=== PATIENT | male | born 1955 | race African-American/Black ===

== ENCOUNTER 2018-02-28 16:42 | Inpatient (IN) | payer MEDICARE ==
--- NOTE | 2018-02-28 16:59 | ED ---
Respiratory - HPI Summary HPI Summary: Pt is a 62 y/o male with PMHX of ESRD presenting to the [facility] c/o of respiratory distress since today. He is visiting family in [place] and is originally from [place]. Today, he missed his first of two weekly dialysis visits. He notes SOB and CP but denies heart pain. Pt has dialysis fistulas on his RUE and a catheter on his left chest. Pt has a PMHx of HTN,COPD and CAD. Pt is a former smoker who quit 20 years ago. This is tai Gaffney documenting for attending Dr. Willis Davidson MD. - History of Current Complaint Chief Complaint: EDRespiratoryDistress Stated Complaint: DIFF BREATHING Time Seen by Provider: 02/28/18 16:50 Hx Obtained From: Patient Onset/Duration: Sudden Onset, Still Present, Worse Since - Today Initial Severity: Moderate Current Severity: Moderate Pain Intensity: 7 Associated Signs and Symptoms: SOB, Chest Pain - Allergy/Home Medications Allergies/Adverse Reactions: Allergies Allergy/AdvReac Type Severity Reaction Status Date / Time VINCENZO Inhibitors Allergy Coughing Verified 02/28/18 17:07 Home Medications: Home Medications Carvedilol TAB* [Coreg TAB*] 12.5 mg PO BID 02/28/18 [History Confirmed 02/28/18 ] Famotidine [Acid Bowling Pin Refinisher] 10 mg PO DAILY 02/28/18 [History Confirmed 02/28/18] NIFEdipine ER TAB* [Procardia Xl TAB*] 60 mg PO DAILY 02/28/18 [History Confirmed 02/28/18] Polyethylene Glycol 3350* [Miralax*] 17 gm PO DAILY PRN 02/28/18 [History Confirmed 02/28/18] Sevelamer TAB* [Renvela TAB*] 800 mg PO TID 02/28/18 [History Confirmed 02/28/18 ] Simvastatin TAB(NF) [Zocor(NF)] 20 mg PO DAILY 02/28/18 [History Confirmed 02/28] Tiotropium CAP.INH* [Spiriva CAP.INH*] 1 cap.inh INH DAILY 02/28/18 [History Confirmed 02/28/18] Umeclidin 62.5 MDI(NF) [Incruse ELLIPTA MDI (NF)] 1 puff INH BID 02/28/18 [ History Confirmed 02/28/18] amLODIPine TAB* [Norvasc 5 mg TAB*] 5 mg PO DAILY 02/28/18 [History Confirmed ] oxyCODONE/Acetamin 5/325 MG* [Percocet 5/325 TAB*] 1 tab PO Q4H PRN 02/28/18 [ History Confirmed 02/28/18] PMH/Surg Hx/FS Hx/Imm Hx Previously Healthy: No Cardiovascular History: Reports: Hx Atrial Fibrillation, Hx Coronary Artery Disease - Stenting done 3x, Other Cardiovascular Problems/Disorders - Thoracic aneurysm History: Reports: Hx Chronic Renal Failure - ESRD Infectious Disease History: No Infectious Disease History: Denies: Traveled Outside the [place] in Last 30 Days - Social History Occupation: Disabled Lives: Alone Hx Tobacco Use: Yes - Quit 20 years ago Smoking Status (MU): Former Smoker Review of Systems Cardiovascular: Other - Negative: Heart Pain Positive: Chest Pain. Negative: Palpitations Positive: Shortness Of Breath. Negative: Cough Negative: Abdominal Pain Negative: Anxious All Other Systems Reviewed And Are Negative: Yes Physical Exam - Summary Physical Exam Summary: Appearance: Mild distress Skin: warm, dry, reflects adequate perfusion Head/face: normal Eyes: EOMI, MIRZA ENT: normal Neck: supple, non-tender Respiratory: Diminished breath sounds; median sternotomy scar in mid-chest Cardiovascular: Fistulas in right arm; dialysis catheter on left chest Abdomen: non-tender, soft Bowel Sounds: present Musculoskeletal: No significant edema on LE, trace edema in his feet Triage Information Reviewed: Yes Vital Signs On Initial Exam: Initial Vitals Temp Pulse Resp BP Pulse Ox 98.8 F 89 42 151/82 93 02/28/18 16:42 02/28/18 16:42 02/28/18 16:42 02/28/18 16:42 02/28/18 16:42 Vital Signs Reviewed: Yes Diagnostics - Vital Signs Vital Signs Temp Pulse Resp BP Pulse Ox 02/28/18 16:42 98.8 F 89 42 151/82 93 - Laboratory Result Diagrams: 02/28/18 17:30 02/28/18 17:30 Lab Statement: Any lab studies that have been ordered have been reviewed, and results considered in the medical decision making process. - Radiology CXR Xray Interpretation: Positive (See Comments) - Impression: Thoracic graft and dialysis catheter present, Mild interstitial congestion. Radiology Interpretation Completed By: ED Physician - EKG 17:16 Cardiac Rate: NL - 85 bpm EKG Rhythm: Sinus Rhythm EKG Interpretation: Normal [place], Lateral flipped T wave, Nonspecific prolonged [place] Re-Evaluation - Re-Evaluation First Eval Re-Evaluation Time: 17:26 Change: Unchanged - Pt. is still in distress Disposition - Course Course Of Treatment: Show an history of end-stage renal disease on dialysis due this morning. He missed this given his travels. He is not in any acute fluid overload. Discussed the case with serology teacher will arrange dialysis for the morning. He also has concomitant COPD and breathing treatments were given. He does not appear exacerbated and he is on his baseline O2 at 3 L. He was not given steroids at this point. Discussed the case with hospitalist will accept and admit. - Differential Dx - Cardiopulmonary Differential Diagnoses - Cardiopulmonary: Other - COPD, CHF/fluid overload, end- stage renal disease - Diagnoses Provider Diagnoses: End stage renal disease on dialysis, Uncontrolled hypertension, COPD (chronic obstructive pulmonary disease), Hypertension with fluid overload - Physician Notifications Discussed Care Of Patient With: Derek Levy - Deck Scaler Time Discussed With Above Provider: 17:02 Instructed by Provider To: Other - Dr. Lepe recommended admitting the patient and doing the dialysis in-patient. He will see the pt. in the morning. Discharge - Sign-Out/Discharge Documenting (check all that apply): Patient Departure - Discharge Plan Condition: Fair Disposition: ADMITTED TO [facility] Referrals: No Primary Care Phys,NOPCP [Primary Care Provider] - - Billing Disposition and Condition Condition: FAIR Disposition: Admitted to [facility] Consult Consult: 17:20:Consulted with Blanca Alba. The hospitalist agreed to admit
[2018-02-28] MEDS ORDERED: Albuterol/Ipratropium NEB.SOL* Albuterol 2.5 MG/Ipratropium 0.5 MG 3 ML INH ONE (17:06)
[2018-02-28] MEDS ORDERED: Metoprolol Succinate XL TAB* 50 MG PO ONE (17:14)
[2018-02-28] MEDS ORDERED: hydrALAZINE TAB* 25 MG PO ONE (17:14)
[2018-02-28 17:38] LABS: ABS Basophils 0.1 10^3/ul (0-0.2); ABS Eosinophils 0.4 10^3/ul (0-0.6); ABS Lymphocytes 0.9 10^3/ul (1.0-4.8); ABS Monocytes 0.5 10^3/ul (0-0.8); ABS Neutrophils 2.1 10^3/ul (1.5-7.7); ABS Nucleated RBC 0 10^3/ul; Eosinophil % 10.3 % (0-6); Hematocrit 27 % (42-52); Hemoglobin 8.5 g/dl (14.0-18.0); Lymphocyte % 22.7 % (25-47); Mean Corpuscular HGB Conc 32 g/dl (31-36); Mean Corpuscular Hemoglobin 29 pg (27-31); Mean Corpuscular Volume 91 fL (80-94); Mean Platelet Volume 8.1 um3 (7.4-10.4); Nucleated Red Blood Cells % 0; Platelet Count 112 10^3/ul (150-450); Red Blood Count 2.91 10^6/ul (4.00-5.40); Red Cell Distribution Width 19 % (10.5-15); White Blood Count 3.9 10^3/ul (3.5-10.8)
[2018-02-28] MEDS ORDERED: Ondansetron INJ* 2 MG/ML VIAL IV PRN (18:25)
[2018-02-28] MEDS ORDERED: Acetaminophen TAB* 325 MG PO PRN (18:25)
--- NOTE | 2018-02-28 18:46 | RAD ---
INDICATION: Shortness of breath in a dialysis patient COMPARISON: None. TECHNIQUE: Single AP portable view of the chest was obtained. FINDINGS: Image quality is compromised due to the relative inferiority of a portable chest x-ray. There is aortic stent graft overlying the arch of the aorta and sternotomy wires. There is a left internal jugular vein dual-lumen hemodialysis catheter with the tip terminating over the right heart. The heart and mediastinum exhibit normal size and contour. There are patchy densities overlying the bilateral lungs and pulmonary vasculature is mildly engorged and indistinct. Visualized bones are normal for the patient's age. IMPRESSION: 1. The correct clinical setting chest x-ray findings could be compatible with pulmonary edema. 2. Postsurgical changes as described above.
[2018-02-28] MEDS: Mometasone/Formoter 200/5 MDI INH SCH (20:50)
[2018-02-28] MEDS ORDERED: Heparin VIAL(*) 5000 UNITS/ML VIAL (FIVE THOUSAND) SUBCUT SCH (22:00)
[2018-02-28] MEDS: oxyCODONE/Acetamin 5/325 MG* TAB PO PRN (22:17)
--- NOTE | 2018-03-01 00:54 | HP ---
CC: Dr. Joshi in [place], [place], special services director * HISTORY AND PHYSICAL: DATE OF ADMISSION: 02/28/18. PROVIDER: Anaid Avila NP. PRIMARY CARE PROVIDER: None. ATTENDING PHYSICIAN WHILE IN THE HOSPITAL: Amy Guardado DO * (dictated by Anaid Avila NP) CHIEF COMPLAINT: 1. Shortness of breath. 2. Chest pain. HISTORY OF PRESENT ILLNESS: Mr. Munroe is a 62-year-old male patient, who carries a past medical history significant for chronic renal failure on hemodialysis, COPD, atrial fibrillation, hypertension, hyperlipidemia, who presented to the emergency room this evening with complaints of shortness of breath that started approximately 3 hours prior arrival and left-sided chest pain. The patient reports that he was drinking a lot of fluids on the way to [place] and that he is currently on hemodialysis. The patient states that he arrived in [place] approximately 10 days ago from [place]. He had a similar episode while in [place] with the chest pain and shortness of breath. He was admitted to [facility] for evaluation. He does report at the hospital he had a CT of the chest with contrast which showed no pulmonary embolism or leaking aneurysm. He also reports that he had a stress test during his hospitalization that was within normal limits. The patient also reports that he had dialysis x2 and received breathing treatments during his hospitalization in [place]. The patient attempted to contact the dialysis unit here prior to coming to [place] to step up dialysis but was unable to get dialysis until , so he presented to the emergency room due to his increased shortness of breath to be admitted to receive dialysis tomorrow. The patient denies any fever or chills. He does report chronic left-sided chest pain for which he takes pain medication at home. He also reports shortness of breath that started approximately 3 hours ago prior to his presentation to the emergency room. He denies any nausea or vomiting. Denies any abdominal pain. Denies any focal weakness or sensory loss. He denies any visual complaints. Denies any dysphagia. Denies any rashes or lesions. Denies any depression or anxiety. He does report some decreased appetite x1 day. He also reports a cough, that is chronic for him. He does report that he does not produce urine. Given his history of chronic renal failure and need for dialysis and shortness of breath, we were asked to see and evaluate the patient for admission. PAST MEDICAL HISTORY: Significant for: 1. End-stage renal failure with hemodialysis. 2. COPD. 3. Atrial fibrillation. 4. Hypertension. 5. Hyperlipidemia. PAST SURGICAL HISTORY: 1. He does report upper and lower aortic aneurysm repair. 2. Fistulas. 3. Dialysis catheter placed to the left chest. 4. He does report aortic aneurysm repair with stents. HOME MEDICATIONS: Include: 1. Nifedipine 60 mg p.o. q.24 hours. 2. Spiriva, unknown dose. 3. Sevelamer carbonate 800 mg. 4. Simvastatin 20. 5. Oxycodone 5/325 mg. Need to obtain medication list from records in [place] from 01/2018 as patient reports that his medications have changed. Medications need to be confirmed. The patient is unsure of the rest of his medications. We are obtaining a medication list from [facility] in [place]. We will also try to obtain medical records tomorrow from his special services director in [place], [place] with the correct medication list. ALLERGIES TO MEDICATIONS: He is allergic to VINCENZO INHIBITORS. FAMILY HISTORY: Brother with a history of throat cancer. SOCIAL HISTORY: The patient reports he is a former tobacco user. He quit approximately 20 years ago, prior to that, he smoked 1 pack per month. Denies any alcohol or illicit drug use. He is . Surrogate decision maker in the event he is unable to make his own decision is his son, Hong Fallon. His phone number is [phone]. REVIEW OF SYSTEMS: There is no documented fever. There has been no significant weight change. There was no double vision. No ear discharge. Denies any rhinorrhea. Denies sore throat. He does report left-sided chest pain that is chronic. Denies abdominal pain, nausea, vomiting or diarrhea. Denies dysuria. He does report he does not produce urine. He does report some shortness of breath and cough. Denies any seizures. Denies loss of consciousness. Denies any skin ulcerations or pruritus. A review of 14-systems is completed and all others were negative. PHYSICAL EXAMINATION GENERAL: At this time, Mr. Munroe is a 62-year-old male. He is pleasant sitting on the stretcher in the emergency room. He does not appear to be in any acute distress. VITAL SIGNS: Temperature was 98.8, heart rate was 89, respirations were 28, O2 saturation was 97%. HEENT: Head is atraumatic, normocephalic. Eyes: EOMs are intact. Sclerae anicteric and not pale. Oral mucosa appeared to be moist. NECK: Supple. LUNGS: Lungs with expiratory wheezes bilaterally, diminished. No rales or rhonchi. CARDIAC: S1, S2. Irregular rate and rhythm. There is a murmur. No rubs or gallops. ABDOMEN: Flat, soft, nontender. Bowel sounds are present x4. EXTREMITIES: Pulses are +2 bilaterally. He does have bilateral lower extremity edema with +1 pitting edema. He is able to move all 4 extremities with 5/5 strength. NEUROLOGIC: He is awake, alert, and oriented x3. Hand flattening machine operator are equal bilaterally. Speech is clear. No gross focal deficits. SKIN: Intact. DIAGNOSTIC STUDIES AND LABORATORY DATA: WBCs are 3.9, RBCs 2.9, hemoglobin was 8.5, hematocrit was 27, platelet count was 112. Sodium 139, potassium 5.3, chloride was 99, carbon dioxide was 27, anion gap was 13, BUN was 65, creatinine 12.77. BUN and creatinine ratio was 5.1, glucose was 109, calcium 8.8, phosphorous was 6.6, troponin was 0.11. EKG showed sinus rhythm at a rate of 85. Chest x-ray, radiologist's impression: He has an aortic stent graft overlying the arch of the aorta. Hemodialysis catheter was terminating over the right heart. There are patchy densities overlying the bilateral lungs and pulmonary vasculature, which are mildly engorged and indistinct. Chest x-ray findings could be compatible with pulmonary edema. ASSESSMENT AND PLAN: Mr. Munroe is a 62-year-old male patient, who presented to the emergency room today with complaints of shortness of breath and left-sided chest pain. We were asked to see and evaluate him due to his shortness of breath and need for dialysis as he has a chronic end-stage renal disease, he will be admitted under observation for: 1. Shortness of breath. I suspect this is related to volume overload +/- chronic obstructive pulmonary disease exacerbation. We will place the patient on nebulizers and the need for dialysis. The patient does have a chronic history of chronic obstructive pulmonary disease. He does report improvement with his breathing after receiving a breathing treatment. 2. End-stage renal disease, on hemodialysis. The patient will receive hemodialysis as an inpatient tomorrow, Dr. Levy was consulted. 3. Chronic obstructive pulmonary disease. The patient will be placed on Dulera and albuterol nebulizer as needed for shortness of breath. 4. Hypertension. The patient is unsure of his medications. He does note that he has taken nifedipine 60 mg XL q.24 hours. He does have a medication list pending. We are trying to obtain records from the [facility] in [place], [place] for further information on current medications. 5. Elevated troponin, I suspect this is related to end-stage renal disease and possibly demand ischemia related to his shortness of breath. We will continue to trend his troponins. He does report he recently had a negative stress test in [facility] approximately 10 days ago. At this time, I am obtaining records from the [facility] to confirm that test was within normal limits. He also reports that he had a CT of the chest with contrast that was negative for pulmonary embolism. Again, I am trying to obtain these records from [facility] in [place]. 6. DVT prophylaxis. I will place him on heparin subcu 5000 units q.8 hours. 7. FEN. He can have a heart-healthy diet, renal diet. 8. Code status. He is a full code. TIME SPENT: Time spent on this admission was approximately 60 minutes, greater than half the time was spent [id number] with the patient obtaining my history and physical, the other half the time was spent going over my plan of care and implementing my plan of care. I have discussed this with my attending, Dr. Amy Guardado, she is in agreement with my plan. ANAID AVILA, WHEEL BLOCKER [id number]/CPS #: [id number] JOSE MIGUEL
[2018-03-01] MEDS: oxyCODONE/Acetamin 5/325 MG* TAB PO PRN ×4 (02:32→23:28)
[2018-03-01] MEDS: Albuterol 2.5 MG/3 ML NEB.SOL* (0.083%) INH PRN (02:58)
[2018-03-01] MEDS ORDERED: LORazepam TAB(*) 0.5 MG PO ONE (05:27)
[2018-03-01 06:29] LABS: ABS Basophils 0 10^3/ul (0-0.2); ABS Eosinophils 0.3 10^3/ul (0-0.6); ABS Lymphocytes 0.9 10^3/ul (1.0-4.8); ABS Monocytes 0.5 10^3/ul (0-0.8); ABS Neutrophils 2.7 10^3/ul (1.5-7.7); ABS Nucleated RBC 0 10^3/ul; Eosinophil % 6.5 % (0-6); Hematocrit 26 % (42-52); Hemoglobin 8.2 g/dl (14.0-18.0); Lymphocyte % 19.8 % (25-47); Mean Corpuscular HGB Conc 32 g/dl (31-36); Mean Corpuscular Hemoglobin 29 pg (27-31); Mean Corpuscular Volume 92 fL (80-94); Mean Platelet Volume 7.4 um3 (7.4-10.4); Nucleated Red Blood Cells % 0; Platelet Count 94 10^3/ul (150-450); Red Blood Count 2.78 10^6/ul (4.00-5.40); Red Cell Distribution Width 20 % (10.5-15); Tear Drop Cells 1+; White Blood Count 4.4 10^3/ul (3.5-10.8)
[2018-03-01] MEDS: Mometasone/Formoter 200/5 MDI INH SCH ×2 (07:44→20:15)
[2018-03-01 09:09] LABS: EGFR Non-African American 3.8 (>60)
[2018-03-01] MEDS ORDERED: Heparin DIALYSIS ONLY(*) 1,000 UNITS/ML VIAL DIALYSIS ONE (14:00)
[2018-03-01] MEDS: Carvedilol TAB* 6.25 MG PO SCH (20:57)
[2018-03-01] MEDS: Sevelamer TAB* 800 MG PO SCH (20:57)
--- NOTE | 2018-03-02 00:20 | PN ---
Subjective Date of Service: 03/02/18 Interval History: C/o left chest unchanged from his chronic chest pain , denies increased chest pain with exertion. and shortness of breath. States that breathing is improved after dialysis today, but still feels mildly short of breath. Denies abd pain n /v/d. denies fever or chills. patient reports that he is staying here and not returning to [place]. reports that he is looking for a place to live and does not have any oxygen supplies for home or medications. Family History: Unchanged from Admission Social History: Unchanged from Admission Past Medical History: Unchanged from Admission Objective Active Medications: Acetaminophen (Tylenol Tab*) 650 mg PO Q4H PRN PRN Reason: FEVER/PAIN Albuterol (Ventolin 2.5 Mg/3 Ml Neb.Lorelei*) 2.5 mg INH [id number] AWAKE PRN PRN Reason: sob/wheezing Last Admin: 03/01/18 02:58 Dose: 2.5 mg Carvedilol (Coreg Tab*) 12.5 mg PO BID [facility] Last Admin: 03/01/18 20:57 Dose: 12.5 mg Mometasone Furoate/Formoterol Fumar (Dulera 200/5 Mdi*) 2 puff INH BID [facility] Last Admin: 03/01/18 20:15 Dose: 2 puff Ondansetron HCl (Zofran Inj*) 4 mg IV Q4H PRN PRN Reason: NAUSEA/VOMITING Last Admin: 03/01/18 02:31 Dose: 4 mg Oxycodone/Acetaminophen (Percocet 5/325 Tab*) 1 tab PO Q4H PRN PRN Reason: Pain Last Admin: 03/01/18 23:28 Dose: 1 tab Sevelamer Carbonate (Renvela Tab*) 800 mg PO TID [facility] Last Admin: 03/01/18 20:57 Dose: 800 mg Vital Signs - 8 hr 03/01/18 03/01/18 03/01/18 16:47 19:36 20:00 Temperature 98.9 F Pulse Rate 90 Respiratory 18 20 20 Rate Blood Pressure 135/66 (mmHg) O2 Sat by Pulse 98 Oximetry 03/01/18 03/01/18 03/01/18 20:17 20:56 23:28 Temperature Pulse Rate 86 Respiratory 20 20 20 Rate Blood Pressure (mmHg) O2 Sat by Pulse 93 Oximetry 03/01/18 23:46 Temperature 98.5 F Pulse Rate 81 Respiratory 26 Rate Blood Pressure 135/59 (mmHg) O2 Sat by Pulse 98 Oximetry Oxygen Devices in Use Now: Nasal Cannula Appearance: appears comfotable resting in bed Eyes: No Scleral Icterus Ears/Nose/Mouth/Throat: Clear Oropharnyx, Mucous Membranes Moist Neck: NL Appearance and Movements; NL JVP, Trachea Midline Respiratory: Symmetrical Chest Expansion and Respiratory Effort, - - poor air movement, few exp wheezes bilat , diminished t/o Cardiovascular: NL Sounds; No Murmurs; No JVD, No Edema, - - mils lower ext edema Abdominal: NL Sounds; No Tenderness; No Distention Extremities: No Clubbing, Cyanosis Skin: No Rash or Ulcers Neurological: Alert and Oriented x 3 Nutrition: Taking PO's Result Diagrams: 03/01/18 05:30 03/01/18 05:30 Assess/Plan/Problems-Billing Assessment: Mr. Munroe is a 62 y.o male who has a pmhx significant for ESRD on hemodialysis, HTN, Copd, Aortic aneurysm with repair, hx of Afib and HLD who presented the Er with shortness of breath and chest pain needing dialysis. - Patient Problems (1) ESRD (end stage renal disease) on dialysis Current Visit: Yes Status: Acute Code(s): N18.6 - END STAGE RENAL DISEASE; Z99.2 - DEPENDENCE ON RENAL DIALYSIS SNOMED Code(s): 387480307 Comment: Patient is moving her from [place]- on hemodialysis- did receive diaylsis today was recently seen and treated in [place] for the same a few days ago- had 2 dialysis treatments in [place] before coming to [place] - Dr. ortiz consulted - will need dialysis tuesday again. (2) COPD (chronic obstructive pulmonary disease) Current Visit: Yes Status: Acute Code(s): J44.9 - CHRONIC OBSTRUCTIVE PULMONARY DISEASE, UNSPECIFIED SNOMED Code(s): 88483670 Comment: - thinks he takes spiriva and albuterol at home- waiting for mediation list to confirm - will place on dulera and albuterol - on chronic home o2 - will need home o2 set up at [facility] as patient does not have any home o2 with him. (3) Anemia in ESRD (end-stage renal disease) Current Visit: Yes Status: Acute Code(s): N18.6 - END STAGE RENAL DISEASE; D63.1 - ANEMIA IN CHRONIC KIDNEY DISEASE SNOMED Code(s): 829492172 Comment: reports - chronic anemia will trend H/H (4) Chest pain Current Visit: Yes Status: Acute Code(s): R07.9 - CHEST PAIN, UNSPECIFIED SNOMED Code(s): 37951579 Comment: - reports chronic left sided chest pain since 2010- - obtained records from [place] - last stress test was in 2014- negative at that time - patient had a cardiac cath in 2014 - that was also negative- reports in chart - troponin elevated at 0.11, 0.13, 0.12- Troponin in [place] 01/2018 was 0.13- this appears to be chronic elevation in his troponin suspect this could be related to ESRD.- record from [place] in the chart - will get an ECHO (5) HTN (hypertension) Current Visit: Yes Status: Acute Code(s): I10 - ESSENTIAL (PRIMARY) HYPERTENSION SNOMED Code(s): 54589272 Comment: Patient is unsure of current medications - tried to obtain a medication list from [place] as he reports his medications were changed- no medication list sent with records - will get medication list from dialysis unit here - patient reports that he does not have any medications at this time. (6) DVT prophylaxis Current Visit: Yes Status: Acute Code(s): SDY0146 - SNOMED Code(s): 116513295 Comment: HSQ (7) Full code status Current Visit: Yes Status: Acute Code(s): Z78.9 - OTHER SPECIFIED HEALTH STATUS SNOMED Code(s): 788147778 Status and Disposition: Patient will need assistance with setting up home o2 and getting medications, pt reports that he is moving here from [place] and has no medications or o2 supplies at home.
[2018-03-02 06:27] LABS: ABS Basophils 0 10^3/ul (0-0.2); ABS Eosinophils 0.3 10^3/ul (0-0.6); ABS Lymphocytes 0.6 10^3/ul (1.0-4.8); ABS Monocytes 0.5 10^3/ul (0-0.8); ABS Neutrophils 1.9 10^3/ul (1.5-7.7); ABS Nucleated RBC 0 10^3/ul; Eosinophil % 7.9 % (0-6); Hematocrit 25 % (42-52); Lymphocyte % 17.7 % (25-47); Mean Corpuscular HGB Conc 32 g/dl (31-36); Mean Corpuscular Hemoglobin 29 pg (27-31); Mean Corpuscular Volume 91 fL (80-94); Mean Platelet Volume 8.2 um3 (7.4-10.4); Nucleated Red Blood Cells % 0; Platelet Count 91 10^3/ul (150-450); Red Blood Count 2.73 10^6/ul (4.00-5.40); Red Cell Distribution Width 19 % (10.5-15); White Blood Count 3.3 10^3/ul (3.5-10.8)
[2018-03-02 06:36] LABS: EGFR Non-African American 5.8 (>60)
[2018-03-02] MEDS: oxyCODONE/Acetamin 5/325 MG* TAB PO PRN ×3 (08:46→20:47)
[2018-03-02] MEDS: Sevelamer TAB* 800 MG PO SCH ×3 (08:46→20:44)
[2018-03-02] MEDS: Carvedilol TAB* 6.25 MG PO SCH ×2 (08:46→20:43)
[2018-03-02] MEDS: Mometasone/Formoter 200/5 MDI INH SCH ×2 (09:18→20:06)
--- NOTE | 2018-03-02 10:30 | ECHO ---
Amended Report Patient: MICA MIKE [facility] Rec#: [id number] : 1955 Date: 03/02/2018 Age: 62y Height: 190.5 cm / 75.0 in Weight: 80.7 kg / 177.9 lbs Sex: M BSA: 2.1 Room#: [facility] Admit Date#: 03/02/2018 Type: Inpatient Referring: Anaid Avila Reading: Riccardo Mondragon MD Natural Resource Officer: Macarena Yang RN RDCS Transthoracic Echocardiogram Indication: Chest pain, SOB BP: 123/58 HR: 65 Rhythm: NSR with PACs Findings History: ESRD on hemodialysis, HTN, HLD, thoracic aortic aneurysm with repair, A. fib, COPD, former smoker Technical Comments: The study quality is fair. The study is technically limited due to the patient's history of COPD. The study is technically limited due to the patient's smoking history. Left Ventricle: The left ventricular chamber size is normal. Mild concentric left ventricular hypertrophy is observed. There is increased basal septal hypertrophy noted without evidence of an increased gradient across the left ventricular outflow tract. Global left ventricular wall motion and contractility are within normal limits. Left ventricular systolic function is at the lower limits of normal. The estimated ejection fraction is 50-55%. Abnormal left ventricular diastolic function is observed. Left Atrium: The left atrium is mildly dilated. Right Ventricle: The right ventricle is mildly dilated. The right ventricular global systolic function is low normal. Right Atrium: The right atrium is mildly dilated. Aortic Valve: The aortic valve is trileaflet. The aortic valve leaflets are mildly thickened. There is aortic annular calcification. There is no evidence of aortic regurgitation. There is no evidence of aortic stenosis. Mitral Valve: There is mitral annular calcification. The mitral valve leaflets are mildly thickened. There is mild mitral regurgitation. There is no evidence of mitral stenosis. Tricuspid Valve: The tricuspid valve leaflets are normal. There is mild to moderate tricuspid regurgitation. The right ventricular systolic pressure is estimated at 52 mmHg. There is evidence of moderate pulmonary hypertension. There is no tricuspid stenosis. Pulmonic Valve: The pulmonic valve appears normal. There is a trace pulmonic regurgitation. There is no pulmonic stenosis. Pericardium: There is no significant pericardial effusion. Aorta: The aorta is not well visualized. There is no dilatation of the ascending aorta. There is no dilatation of the aortic arch. There is mild dilatation of the aortic root. Pulmonary Artery: The main pulmonary artery appears normal. Venous: The venous system is not well visualized. The inferior vena cava is not visualized. Conclusions The study is technically limited due to the patient's history of COPD. The study is technically limited due to the patient's smoking history. Mild concentric left ventricular hypertrophy is observed. There is increased basal septal hypertrophy noted without evidence of an increased gradient across the left ventricular outflow tract. Global left ventricular wall motion and contractility are within normal limits. Left ventricular systolic function is at the lower limits of normal. The estimated ejection fraction is 50-55%. The left atrium is mildly dilated. The right ventricle is mildly dilated. The right ventricular global systolic function is low normal. The right atrium is mildly dilated. There is mild mitral regurgitation. There is mild to moderate tricuspid regurgitation. There is evidence of moderate pulmonary hypertension. The right ventricular systolic pressure is estimated at 52 mmHg. There is a trace pulmonic regurgitation. The aorta is not well visualized. No reports of prior studies are offered for comparison. Measurements Name Value Normal Range RVDdMajor (2D) 4.8 cm (2.2 - 4.4) RAd ISD 4CH 5 cm (3.4 - 4.9) RA (A4C)W 4.7 cm (2.9 - 4.6) IVSd (2D) 1.2 cm (0.6 - 1) LVPWd (2D) 1.1 cm (0.6 - 1) LVIDd (2D) 5.1 cm (3.6 - 5.4) LVIDs (2D) 3.7 cm - LV FS (2D) 27 % (25 - 45) Aortic Annulus 2.3 cm (1.4 - 2.6) Ao root diameter (2D) 3.9 cm (2.1 - 3.5) Ascending Ao 3.4 cm (2.1 - 3.4) Aortic arch 2.7 cm (1.8 - 3.4) LA dimension (AP) 2D 4 cm (2.3 - 3.8) LAd ISD 4CH 6.1 cm (2.9 - 5.3) LA ISD 4CH W 4.8 cm (2.5 - 4.5) Name Value Normal Range LA ESV SP 4CH (A/L) 70 ml - LA ESV SP 2CH (A/L) 72 ml - LA ESV BP (A/L) 73 ml - LA ESV BP (A/L) index 35.2 ml/m2 - LA ESV SP 4CH (MOD) 66 ml - LA ESV SP 2CH (MOD) 72 ml - Name Value Normal Range MV E-wave Vmax 1.1 m/sec - MV deceleration time 170 msec - MV A-wave Vmax 0.63 m/sec - MV E:A ratio 1.8 ratio - LV septal e' Vmax 0.05 m/sec - LV lateral e' Vmax 0.08 m/sec - LV E:e' septal ratio 22 ratio - LV E:e' lateral ratio 13.8 ratio - Name Value Normal Range AV Vmax 1.4 m/sec - AV VTI 29.5 cm - AV peak gradient 7.3 mmHg - AV mean gradient 4.5 mmHg - LVOT Vmax 1.1 m/sec - LVOT VTI 22.9 cm - LVOT peak gradient 5 mmHg - LVOT mean gradient 3 mmHg - ANNA Vmax 0.72 m/sec - Name Value Normal Range TR Vmax 3.3 m/sec - TR peak gradient 44 mmHg - RAP 8 mmHg - RVSP 52 mmHg - Name Value Normal Range PV Vmax 0.76 m/sec -
--- NOTE | 2018-03-02 12:25 | PN ---
Progress Note - Progress Note Date of Service: 03/02/18 Note: Istop search showed no results.
--- NOTE | 2018-03-02 12:30 | PN ---
Subjective Date of Service: 03/02/18 Interval History: Less SOB> He states he has enough O2 tanks with him in [place]. No chough, no chest pain. Family History: Unchanged from Admission Social History: Unchanged from Admission Past Medical History: Unchanged from Admission Objective Active Medications: Acetaminophen (Tylenol Tab*) 650 mg PO Q4H PRN PRN Reason: FEVER/PAIN Albuterol (Ventolin 2.5 Mg/3 Ml Neb.Lorelei*) 2.5 mg INH RT.[id number] AWAKE PRN PRN Reason: sob/wheezing Last Admin: 03/01/18 02:58 Dose: 2.5 mg Carvedilol (Coreg Tab*) 12.5 mg PO BID [facility] Last Admin: 03/02/18 08:46 Dose: 12.5 mg Mometasone Furoate/Formoterol Fumar (Dulera 200/5 Mdi*) 2 puff INH BID [facility] Last Admin: 03/02/18 09:18 Dose: 2 puff Ondansetron HCl (Zofran Inj*) 4 mg IV Q4H PRN PRN Reason: NAUSEA/VOMITING Last Admin: 03/01/18 02:31 Dose: 4 mg Oxycodone/Acetaminophen (Percocet 5/325 Tab*) 1 tab PO Q4H PRN PRN Reason: Pain Last Admin: 03/02/18 08:46 Dose: 1 tab Sevelamer Carbonate (Renvela Tab*) 800 mg PO TID [facility] Last Admin: 03/02/18 08:46 Dose: 800 mg Vital Signs - 8 hr 03/02/18 03/02/18 03/02/18 08:46 09:21 11:32 Temperature 98.3 F Pulse Rate 93 76 Respiratory 20 18 16 Rate Blood Pressure 110/57 (mmHg) O2 Sat by Pulse 91 100 Oximetry 03/02/18 11:41 Temperature Pulse Rate Respiratory 20 Rate Blood Pressure (mmHg) O2 Sat by Pulse Oximetry Oxygen Devices in Use Now: Nasal Cannula Appearance: Alert, pratly up in bed. Somewhat tachypneic abuth otherwise looks comfortablle. Eyes: No Scleral Icterus Respiratory: Symmetrical Chest Expansion and Respiratory Effort, Clear to Auscultation, Clear to Percussion Cardiovascular: RRR, No Edema - 1/6 systolic murmur RSB Extremities: No Edema, No Clubbing, Cyanosis, - Skin: No Rash or Ulcers, No Nodules or Sclerosis, - Neurological: Alert and Oriented x 3, NL Sensation Result Diagrams: 03/02/18 06:15 03/02/18 06:15 Assess/Plan/Problems-Billing Assessment: Mr. Munroe is a 62 y.o male who has a pmhx significant for ESRD on hemodialysis, HTN, Copd, Aortic aneurysm with repair, hx of Afib and HLD who presented the Er with shortness of breath and chest pain needing dialysis. - Patient Problems (1) ESRD (end stage renal disease) on dialysis Current Visit: Yes Status: Acute Code(s): N18.6 - END STAGE RENAL DISEASE; Z99.2 - DEPENDENCE ON RENAL DIALYSIS SNOMED Code(s): 720266073 Comment: HD on 03/01/18 here, still due for 2 more this week. Plan HD 03/03 in hospital, 03/[address] outpt[address] Dr. Levy. (2) HTN (hypertension) Current Visit: Yes Status: Acute Code(s): I10 - ESSENTIAL (PRIMARY) HYPERTENSION SNOMED Code(s): 71783548 Comment: - patient reports that he does not have any medications at this time. [facility] (3) COPD (chronic obstructive pulmonary disease) Current Visit: Yes Status: Acute Code(s): J44.9 - CHRONIC OBSTRUCTIVE PULMONARY DISEASE, UNSPECIFIED SNOMED Code(s): 31446038 Comment: - on chronic home o2 - [facility] Status and Disposition: Patient will need assistance with setting up home o2 and getting medications, pt reports that he is moving here from [place] and has no medications or o2 supplies at home.
--- NOTE | 2018-03-02 13:29 | CONS ---
NEPHROLOGY CONSULTATION: DATE OF CONSULT: 03/02/18 HISTORY OF PRESENT ILLNESS: I saw Mr. Munroe yesterday; however, delayed this dictation until I can receive information from his home dialysis unit as he was not completely familiar with all the details of his case. He is a 62-year-old gentleman with a history of end-stage renal disease, which he states is secondary to hypertension; however, the notes say he had glomerulonephritis. He has a history of hypertension and aortic aneurysm, which involved both a thoracic and an abdominal component. He has a history of congestive heart failure with an ejection fraction of 35%. He has a significant fixed defect involving the mid, inferolateral, and apical hunter consistent with a previous myocardial infarction of the right coronary artery or the left circumflex. He has a history of atrial flutter, cocaine abuse, COPD. He presented as he needed a dialysis treatment. He, apparently, was coming for a of a relative in the area and traveled before appropriate transfer of dialysis could be achieved. He was having some shortness of breath. He tells me that when he left [place], a few days ago after his dialysis that they had not gotten him down to his target weight. He denies fevers or chills, nausea or vomiting. 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 MEDICATIONS: His medications according to the list that they sent us included: 1. Renagel 800 mg 4 t.i.d. 2. Metoprolol 25 mg 1 daily. 3. Sensipar 90 mg daily. 4. Simvastatin 20 mg daily. 5. Claritin 10 mg daily. This is a little bit different than the list he provided us here, they do not have nifedipine or Spiriva on their list from his home unit. In addition, in the dialysis unit, he receives Parsabiv 7.5 mg IV with each dialysis treatment. ALLERGIES: He has an extensive allergy list, which includes ACCUPRIL, VINCENZO INHIBITORS, BENADRYL, LISINOPRIL, MINOXIDIL, and PORK-DERIVED INSULIN. FAMILY HISTORY: Significant in that his brother of throat cancer. SOCIAL HISTORY: He has a significant history of noncompliance. He denies any current alcohol or illicit drug use, although he does have a history of cocaine abuse in the past. He previously was a smoker. REVIEW OF SYSTEMS: Otherwise unremarkable. No visual disturbances. No hearing problems. No swallowing difficulties. He has chronic left-sided chest pain. No nausea, vomiting, or change in his bowel habits. He has no pedal edema, but even when he is fluid overloaded, he tells me he has no pedal edema and most of the extra weight is held in his abdomen and in his chest. PHYSICAL EXAM: He is a well-developed, gentleman, who appeared quite comfortable to me. He had a tunneled central venous dialysis catheter in his left chest. 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 He has been afebrile. Blood pressure 123/58, pulse 78, respirations 24. He is normocephalic. He is anicteric. His chest was clear. The heart revealed a regular rhythm. I could not hear any murmurs. The abdomen is soft and nontender. Bowel sounds are positive. He had 1+ edema to his legs. Neurologic was unremarkable. LABORATORY DATA: A review of his laboratory studies reveals a white count of 4.4, hemoglobin of 8, hematocrit of 25. Sodium of 135, potassium of 5.2, chloride 96, total CO2 30, BUN 46, creatinine 9.25. IMPRESSION: 1. End-stage renal disease. 2. Chronic obstructive pulmonary disease. 3. Hypertension. 4. Peripheral vascular disease. PLAN: In the hospital, he underwent hemodialysis via his central venous catheter and from a nephrologic point of view, he can go home at any point when his social issues are taken care of. Currently, he has no place to stay. He does not have his medications. He does not have his home oxygen. I have discussed the case with Anaid Avila NP. [id number]/[facility] #: [id number] JOSE MIGUEL
[2018-03-02] MEDS: Albuterol 2.5 MG/3 ML NEB.SOL* (0.083%) INH PRN (20:10)
[2018-03-03] MEDS: Mometasone/Formoter 200/5 MDI INH SCH ×2 (07:34→20:14)
[2018-03-03] MEDS: oxyCODONE/Acetamin 5/325 MG* TAB PO PRN ×2 (09:11→16:28)
[2018-03-03] MEDS: Sevelamer TAB* 800 MG PO SCH ×2 (09:11→16:19)
[2018-03-03 11:35] VITALS: BP 154/77
[2018-03-03] MEDS ORDERED: Heparin DIALYSIS ONLY(*) 1,000 UNITS/ML VIAL DIALYSIS ONE (14:00)
[2018-03-03] MEDS ORDERED: Epoetin Alfa* 10,000 UNITS/ML VIAL IV ONE (14:00)
[2018-03-03] MEDS: Carvedilol TAB* 6.25 MG PO SCH (16:19)
--- NOTE | 2018-03-04 00:16 | DS ---
DISCHARGE SUMMARY: DATE OF ADMISSION: DATE OF DISCHARGE: 03/03/18 HISTORY: This 62-year-old man presented with shortness of breath and chest pain. The history is deta abrahan in the admission note. He was felt to be having a COPD exacerbation. He had also missed a dialysis day. He was placed on mo metasone, formoterol, and albuterol nebulizer. He received some inhaled medication and felt better. He had a hemodialysis on 03/01/18 and will have a second hemodialysis inpatient on 03/03/18. He earl l be discharged and will come on 03/04/18 to the outpatient dialysis center for continuing outpatient dialysis. He seemed a little short of breath after the first dialysis, but I am confident he will i mprove after the second dialysis here. The patient in any event felt he was ready to go home. He wi ll have oxygen as he usually dose and all his usual medications. There may be some change as we do n ot have very good records from before. He did not bring any medications with him. FINAL DIAGNOSES: 1. End-stage renal disease. 2. Hypertension. 3. Chronic obstructive pulmonary disease. DISCHARGE MEDICATIONS: 1. Sevelamer 800 mg t.i.d. 2. Mometasone-formoterol 200/5 two puffs b.i.d. 3. Oxycodone/Acetaminophen 5/325 one every 4 hours p.r.n. maximum daily dose 4, dispensed 30. 4. Carvedilol 12.5 mg b.i.d. 5. Nifedipine ER 60 mg daily. 6. Simvastatin 20 mg daily. [id number]/[facility] #: [id number]
== END 2018-03-03 20:00 | disposition home or self-care (01) | DRG 190 ==
LOC: ED 16:42 → MEDTELE 18:25 → OBSVTOIN 03-02 10:00
PROVIDERS: ADMIT Hospitalist; ATTEND Internal Medicine
PROC: 5A1D70Z Performance of Urinary Filtration, Intermittent, Less than 6 Hours Per Day (ICD-10-PCS; principal; 2018-03-01)
PROC: 5A1D70Z Performance of Urinary Filtration, Intermittent, Less than 6 Hours Per Day (ICD-10-PCS; 2018-03-03)
DX: J44.1 Chronic obstructive pulmonary disease with (acute) exacerbation (principal); N18.6 End stage renal disease; I24.8 Other forms of acute ischemic heart disease; I13.2 Hypertensive heart and chronic kidney disease with heart failure and with stage 5 chronic kidney disease, or end stage renal disease; I50.9 Heart failure, unspecified; I48.91 Unspecified atrial fibrillation; Z99.2 Dependence on renal dialysis; E78.5 Hyperlipidemia, unspecified; R74.8 Abnormal levels of other serum enzymes; I73.9 Peripheral vascular disease, unspecified; G89.29 Other chronic pain; Z79.891 Long term (current) use of opiate analgesic; Z79.899 Other long term (current) drug therapy; Z88.8 Allergy status to other drugs, medicaments and biological substances; Z80.0 Family history of malignant neoplasm of digestive organs; Z87.891 Personal history of nicotine dependence; F14.21 Cocaine dependence, in remission
CPT/HCPCS: 36415; 71045; 80048; 84100; 84484; 85025; 85060; 90935; 93005; 93306; 94640; 99284; A9270-GY; G0378; J0885; J1644; J2405

== ENCOUNTER 2018-03-05 11:04 | Emergency (ER) | payer MEDICARE ==
[2018-03-05 11:43] VITALS: BP 132/81
--- NOTE | 2018-03-05 15:58 | ED ---
Complex/Multi-Sys Presentation - HPI Summary HPI Summary: Patient is a 62-year-old male presenting to the ED with a request for oxygen tank. He was seen in the ED a few days ago and states his oxygen tank is currently empty. He did not know where else to go. He endorses feeling much improved since leaving, however he still is short of breath without his oxygen. Vital signs are stable on arrival. - History Of Current Complaint Chief Complaint: EDGeneral Time Seen by Provider: 03/05/18 11:30 Hx Obtained From: Patient Onset/Duration: Sudden Onset Timing: Constant Severity Currently: None Severity Initially: Mild Related History: Recent Illness, Recent Hospitalization - Allergies/Home Medications Allergies/Adverse Reactions: Allergies Allergy/AdvReac Type Severity Reaction Status Date / Time VINCENZO Inhibitors Allergy Coughing Verified 02/28/18 17:07 PMH/Surg Hx/FS Hx/Imm Hx Previously Healthy: Yes Cardiovascular History: Reports: Hx Atrial Fibrillation, Hx Coronary Artery Disease - Stenting done 3x, Other Cardiovascular Problems/Disorders - Thoracic aneurysm Respiratory History: Reports: Hx Chronic Obstructive Pulmonary Disease (COPD) Denies: Hx Asthma History: Reports: Hx Chronic Renal Failure - ESRD Sensory History: Denies: Hx Contacts or Glasses, Hx Hearing Aid Opthamlomology History: Denies: Hx Contacts or Glasses - Surgical History Surgery Procedure, Year, and Place: 2010 Thoracic aneurysm SX, cardiac stent placement - Immunization History Hx Pertussis Vaccination: No Immunizations Up to Date: Yes Infectious Disease History: No Infectious Disease History: Denies: Traveled Outside the [place] in Last 30 Days - Social History Occupation: Unemployed Lives: With Family Alcohol Use: None Hx Substance Use: No Substance Use Type: Reports: None Hx Tobacco Use: Yes - Quit 20 years ago Smoking Status (MU): Former Smoker Review of Systems Constitutional: Negative Negative: Fever, Chills, Fatigue, Skin Diaphoresis Negative: Palpitations, Chest Pain Positive: Shortness Of Breath. Negative: Cough Negative: Abdominal Pain, Vomiting, Diarrhea, Nausea Negative: Rash Negative: Headache Psychological: Normal All Other Systems Reviewed And Are Negative: Yes Physical Exam Triage Information Reviewed: Yes Vital Signs On Initial Exam: Initial Vitals Temp Pulse Resp BP Pulse Ox 99.0 F 90 14 135/81 94 03/05/18 11:09 03/05/18 11:03/05/18 11:03/05/18 11:09 03/05/18 11:09 Vital Signs Reviewed: Yes Appearance: Positive: Well-Appearing, No Pain Distress, Well-Nourished Skin: Positive: Warm, Skin Color Reflects Adequate Perfusion Head/Face: Positive: Normal Head/Face Inspection Eyes: Positive: EOMI, MIRZA, Conjunctiva Clear Neck: Positive: Supple, Nontender, No Lymphadenopathy Respiratory/Lung Sounds: Positive: Breath Sounds Present, Wheezes Cardiovascular: Positive: RRR, Pulses are Symmetrical in both Upper and Lower Extremities Musculoskeletal: Positive: Strength/ROM Intact Neurological: Positive: Speech Normal Psychiatric: Positive: Normal Diagnostics - Vital Signs Vital Signs Temp Pulse Resp BP Pulse Ox 03/05/18 11:35 99.0 F 90 16 132/81 94 03/05/18 11:09 99.0 F 90 14 135/81 94 - Laboratory Lab Statement: Any lab studies that have been ordered have been reviewed, and results considered in the medical decision making process. Complex Multi-Symp Course/Dx Course Of Treatment: During the course of treatment, director case management is called who was able to secure an oxygen tank. Patient is well aware of how to use the tank. Vital signs are stable. Lungs with bilateral wheezing, however endorses feeling much improved since discharge 2 days ago. RRR. He is discharged home with oxygen tank. He will follow up with his PCP. - Diagnoses Provider Diagnoses: Oxygen dependent Discharge - Sign-Out/Discharge Documenting (check all that apply): Patient Departure - Discharge Plan Condition: Stable Disposition: HOME Referrals: No Primary Care Phys,NOPCP [Primary Care Provider] - - Billing Disposition and Condition Condition: STABLE Disposition: Home
== END 2018-03-05 11:35 | disposition home or self-care (01) ==
LOC: ED 11:04
DX: R06.02 Shortness of breath (principal); R06.2 Wheezing; Z99.81 Dependence on supplemental oxygen; Z87.891 Personal history of nicotine dependence; Z88.8 Allergy status to other drugs, medicaments and biological substances
CPT/HCPCS: 99281

== ENCOUNTER 2018-03-07 11:08 | Emergency (ER) | payer MEDICARE ==
--- NOTE | 2018-03-07 12:06 | ED ---
Upper Extremity Pain - HPI Summary HPI Summary: This is scribe Tez Hoover documenting for attending Roxy Murcia MD. A 62 y/o male present to ED s/p hemodialysis central catheter leak/hole noted during regularly scheduled dialysis today. In the ED room, the patient has a rate of 103 BPM, O2 saturation of 100% and blood pressure of 166/114. As per triage, "pt was at dialysis when his port cat on left chest wall started leaking. Nurses changed with [facility] but they wanted him to get looked at here. Pt not actively bleeding now". According to the patient, his catheter has a hole in it which is causing it to leak. It is unknown how the hole occurred. Per Dr. Levy who called ahead to the ED regarding the pt, patient had blood cultures drawn and was given 1 g of Vancomycin IV during dialysis. 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 Patient denies any fever, but has cough. It was noted in the ED room that the patient has a hoarse voice which is due to recently undergoing dialysis, per patient. Pt denies any abdominal pain, nausea, chest pain, SOB or edema. It was noted that the patient's dry weight is 75 kilograms. After he was off dialysis today his weight was at 76.3 kilograms. Patient undergoes dialysis 3 times a week on Tuesday, and Tuesday. The patient has been on hemodialysis for 11 years with ESRD due to high blood pressure. Patient took pain pill 2 hours ago. No FHx of kidney failure, however, positive FHx of HTN. PMHx of significant for thoracic and abdominal aortic dissection and surgery in [facility]. I, Dr. Roxy Murcia, personally performed the services described in this documentation as scribed in my presence and it is both accurate and complete. - History of Current Complaint Chief Complaint: EDGeneral Stated Complaint: PORT/HOLE BLEEDING IN CHEST Time Seen by Provider: 03/07/18 11:22 Hx Obtained From: Patient Mechanism Of Injury: Unknown - Leak in catheter. Onset/Duration: Started Minutes Ago, Still Present Timing: Constant Severity Currently: None Aggravating Factor(s): Nothing Alleviating Factor(s): Nothing Associated Signs & Symptoms: Positive: Negative - Allergies/Home Medications Allergies/Adverse Reactions: Allergies Allergy/AdvReac Type Severity Reaction Status Date / Time VINCENZO Inhibitors Allergy Coughing Verified 02/28/18 17:07 PMH/Surg Hx/FS Hx/Imm Hx Previously Healthy: No - ESRD on hemodialysis Cardiovascular History: Reports: Hx Atrial Fibrillation, Hx Coronary Artery Disease - Stenting done 3x, Other Cardiovascular Problems/Disorders - Thoracic aneurysm Respiratory History: Reports: Hx Chronic Obstructive Pulmonary Disease (COPD) Denies: Hx Asthma History: Reports: Hx Chronic Renal Failure - ESRD on hemodialysis Sensory History: Denies: Hx Contacts or Glasses Opthamlomology History: Denies: Hx Contacts or Glasses - Surgical History Surgery Procedure, Year, and Place: 2010 Thoracic aneurysm SX, cardiac stent placement Infectious Disease History: No Infectious Disease History: Denies: Traveled Outside the [place] in Last 30 Days - Family History Known Family History: Positive: Hypertension - Social History Alcohol Use: None Hx Substance Use: No Substance Use Type: Reports: None Hx Tobacco Use: Yes - Quit 20 years ago Smoking Status (MU): Former Smoker Review of Systems Negative: Fever Positive: Other - hoarse voice, usual for him after dialysis, per pt Cardiovascular: Negative Positive: Cough Negative: Abdominal Pain, Nausea Negative: Edema Skin: Negative Neurological: Negative Psychological: Normal All Other Systems Reviewed And Are Negative: Yes Physical Exam - Summary Physical Exam Summary: Appearance: Chronically ill-appearing, no pain distress, well-nourished, speaks with hoarse voice. Skin:Warm, color reflects adequate perfusion, dry Head:Normal Head/Face inspection, atraumatic Eyes: Conjunctiva clear ENT:Normal inspection Neck:Supple, no nodes, no JVD Respiratory: Lungs clear, normal breath sounds, no respiratory distress Cardio: RRR, No murmur, pulses normal, brisk capillary refill, left upper anterior chest with central hemodialysis catheter in place. Dressing is dry and intact. Abdomen: Soft, nontender Bowel sounds: Present Musculoskeletal: Strength Intact/ROM intact, no calf tenderness, no edema, right upper arm with fistula with good thrill and bruit, bandaged after dialysis. Dressing is dry and intact. Psychological: Normal Neuro: Alert, muscle tone normal, no focal deficit Triage Information Reviewed: Yes Vital Signs On Initial Exam: Initial Vitals Temp Pulse Resp BP Pulse Ox 99 F 100 18 139/112 91 03/07/18 11:15 03/07/18 11:15 03/07/18 11:15 03/07/18 11:15 03/07/18 11:15 Vital Signs Reviewed: Yes Diagnostics - Vital Signs Vital Signs Temp Pulse Resp BP Pulse Ox 03/07/18 12:02 99 03/07/18 12:00 98 28 100 03/07/18 11:32 109 20 166/114 97 03/07/18 11:31 108 87 03/07/18 11:15 99 F 100 18 139/112 91 - Laboratory Lab Statement: Any lab studies that have been ordered have been reviewed, and results considered in the medical decision making process. Re-Evaluation - Re-Evaluation First Eval Re-Evaluation Time: 11:58 Comment: Dr. Fowler is coming to evaluate patient. Second Eval Re-Evaluation Time: 14:10 Change: Worse Comment: Patient is in a lot of pain according to nursing staff. Dr. Murcia allows for Percocet administration, his usual chronic pain medication. Third Eval Re-Evaluation Time: 15:07 Change: Improved Comment: Patient is comfortable. Patient has no SOB. Dr. Sims is pulling out catheter now. Fourth Eval Re-Evaluation Time: 15:43 Change: Improved Comment: Patient advised he can take pain medication at 1815. Fistula with good thrill and bruit. Site where catheter was pulled is dry and intact. Course/Dx - Course Course Of Treatment: A 62 y/o male with ESRD on HD presents to ED s/p central dialysis catheter leak, referred after hemodialysis today that was done via a fistula in his right upper arm that has pseudoaneurysms that was useable, but not optimal for dialysis. Dr. Levy requests that general surgery pull the catheter and arrange for the catheter to be replaced in 5 days or so (next week) . Pt had blood cultures drawn and vancomycin 1gm given in dialysis. No laboratory tests were done in the ED. In the ED course, the pt received one Percocet which he takes routinely for chronic pain. Patient medications reviewed this visit. During reevaluation, the patient is comfortable. Patient has no SOB. Dr. Sims pulled the catheter after observing pt in the ED x 4 hrs after hemodialysis because of heparinization during dialysis. Patient will be discharged with diagnoses of mechanical complications of dialysis catheter, poor controlled HTN, encounter for removal of vascular catheter and ESRD. Patient is to follow up with Dr. Derek Levy in 2 days for his usual dialysis. Patient is agreeable with this plan. - Diagnoses Provider Diagnoses: Complications, dialysis, catheter, mechanical, ESRD (end stage renal disease) on dialysis, Hypertension, poor control, Encounter for removal of vascular catheter Discharge - Sign-Out/Discharge Documenting (check all that apply): Patient Departure - DISCHARGE - Discharge Plan Condition: Stable Disposition: HOME Patient Education Materials: Perma-cath Placement (DC) Referrals: No Primary Care Phys,NOPCP [Primary Care Provider] - Derek Levy MD [Medical Doctor] - 2 Days (keep your regular scheduled dialysis appointment on 03/09/18) Additional Instructions: We gave you instructions about catheter placement today. But what you had done was your left central dialysis catheter was pulled today. You received vancomycin 1 gram in dialysis today. There are blood cultures pending on you. And Dr. Sims sent the dialysis catheter that he pulled today for culture also. Those results are still pending at this time. You should keep your regularly scheduled dialysis appointment for 03/09/18 and 03/11/18. They will use your right upper arm fistula. Dr. Levy wants to replace the dialysis catheter in your chest next week. He will coordinate the scheduling of that. Ask about this when you are at dialysis on . Return to the ER if you have any new or worsening symptoms, especially if you have fever, chest pain or shortness or breath. - Billing Disposition and Condition Condition: STABLE Disposition: Home
[2018-03-07] MEDS ORDERED: oxyCODONE/Acetamin 5/325 MG* TAB PO ONE (14:13)
[2018-03-07] MEDS ORDERED: Lidocaine 2% EPI 1:200000 MPF*10-20 ML VIAL ONE (15:11)
[2018-03-07] MEDS ORDERED: Lidocaine 2% EPI 1:200000 MPF*10-20 ML VIAL INJ ONE (15:25)
[2018-03-07 15:44] VITALS: BP 138/74
== END 2018-03-07 15:45 | disposition home or self-care (01) ==
LOC: ED 11:08
DX: T82.43XA Leakage of vascular dialysis catheter, initial encounter (principal); I12.0 Hypertensive chronic kidney disease with stage 5 chronic kidney disease or end stage renal disease; N18.6 End stage renal disease; I25.10 Atherosclerotic heart disease of native coronary artery without angina pectoris; Z95.5 Presence of coronary angioplasty implant and graft; Z87.891 Personal history of nicotine dependence
CPT/HCPCS: 87071; 99283; A9270-GY